=== PATIENT | female | born 1985 | race Two or more races ===

== ENCOUNTER 2016-06-06 08:17 | Inpatient (IN) | payer MEDICAID ==
[~2016-06-06] VITALS: Ht 152.4 cm; Wt 64.0 kg
--- NOTE | ~2016-06-06 | OR ---
PATIENT'S NAME: JUSTINO MOROCHO [facility] AGE: 30 [address] ROOM: [place] [id number] LOCATION: GOBS ADMIT DATE: 06/06/2016 OR/Procedure Report DISCHARGE DATE: FAMILY PHYSICIAN: Christy Sutton MD ATTENDING PHYSICIAN: Christy Sutton SURGEON: Christy Sutton MD BROADCAST PRODUCER: DATE OF PROCEDURE: 06/06/2016 DIAGNOSES: 1. Spontaneous vaginal delivery of a term male. 2. Spontaneous rupture of membranes. 3. Second-degree repair. DESCRIPTION OF PROCEDURE: The patient is a 30-year-old, 2, para 1, at 39 and 2/7th weeks, who presented in spontaneous labor this morning after spontaneous rupture of membranes at home. The patient was 3 cm at the time of arrival, progressed to rim and complete. With expulsion efforts, baby was delivered in an OA presentation. There was a body cord present. Baby was suctioned. Cord was doubly clamped and cut by myself. Baby was handed to nursery personnel. Cord blood was obtained. Placenta delivered spontaneously intact. There was a second-degree tear that was repaired with 3-0 Vicryl in routine fashion. Mother did have somewhat of a gush of bleeding during the repair. Manual massage was done with good firm pressure and resolution of the bleeding. Baby was a male, weighing 7 pounds and 6 ounces, scores 8 at 1 minute and 9 at 5 minutes. Estimated blood loss 400 mL. At this time, both mother and baby are doing well. MD SONYA VEGAS/karishmal /[id number] d: 06/06/162103 t: 06/24/16 1130, OPERATIVE SUMMARY
[~2016-06-06 08:17] MED LIST: PRENATAL 1+1)(P1 TAB PO
[2016-06-06 09:32] LABS: BASOPHIL % 0.4 %; EOSINOPHIL # 0.1 K/uL (0.0-0.5); EOSINOPHIL % 1.1 %; HEMATOCRIT 33.4 % (33.0-46.0); HEMOGLOBIN 11.4 g/dL (11.0-15.0); IMMATURE GRANULOCYTE % 0.4 %; LYMPHOCYTE # 1.2 K/uL (0.8-4.0); LYMPHOCYTE % 17.1 %; MCH 31.1 pg (27.0-34.0); MCHC 34.1 gm/dL (32.0-36.5); MONOCYTE # 0.5 K/uL (0.0-1.0); MONOCYTE % 7.2 %; MPV 11.5 fl (9.4-12.4); NEUTROPHIL # (ANC) 5.3 K/uL (1.8-7.8); NEUTROPHIL % 73.8 %; NRBC % 0 /100WBC (0-0.00); PLATELET COUNT 203 K/uL (150-450); RBC 3.67 M/uL (3.50-5.50); RDW-CV 14.3 % (11.9-14.6); WBC 7.2 K/uL (4.0-11.0)
--- NOTE | 2016-06-07 04:09 | NUR ---
VSS, b/p runs a little low. fundus firm, off to the right at times, lochia small. emptying bladder without difficulty. motrin and percocet at 2345 for cramping and perineal pain.
[2016-06-07 04:33] LABS: BASOPHIL % 0.2 %; EOSINOPHIL # 0.2 K/uL (0.0-0.5); EOSINOPHIL % 1.8 %; IMMATURE GRANULOCYTE # 0.1 K/uL (0.0-0.3); IMMATURE GRANULOCYTE % 0.6 %; LYMPHOCYTE # 2.9 K/uL (0.8-4.0); MCV 91.9 fl (83.0-98.0); MONOCYTE # 0.6 K/uL (0.0-1.0); MONOCYTE % 6.4 %; MPV 11.4 fl (9.4-12.4); NEUTROPHIL # (ANC) 5.6 K/uL (1.8-7.8); NRBC % 0 /100WBC (0-0.00); PLATELET COUNT 180 K/uL (150-450); RBC 2.23 M/uL (3.50-5.50); RDW-CV 14.6 % (11.9-14.6); WBC 9.4 K/uL (4.0-11.0)
[2016-06-07 04:34] LABS: HEMATOCRIT 20.5 % (33.0-46.0); HEMOGLOBIN 6.8 g/dL (11.0-15.0); MCH 30.5 pg (27.0-34.0); MCHC 33.2 gm/dL (32.0-36.5)
--- NOTE | 2016-06-07 15:48 | NUR ---
Consult received to meet with patient. Contacted Madeline [employer] Entry Writer at 0830 and asked for her assistance meeting with patient. Madeline and I went to the OB floor at 0930. We met with patient and her spouse, their 10 year old son was also in the room, but he played on his phone. Introduced myself and explained my role with the CM department. All of this discussion was through Madeline. Informed patient and spouse that they need to contact Medicaid within 30 days and inform them of baby's . I also provided them with a list of community resources in [place] (Malay version). I gave them information and voucher to the [facility] to get baby items. Parents state they have crib, bottles, clothing, diapers, wipes. They are living with friends in [place]. The baby will sleep in the room with them. Through Madeline we stressed the importance and safety of baby sleeping in their own bed (crib or bassinet) and explained that it is not safe for baby to sleep in bed with them. They verbalized their understanding to Madeline and me. I also provided mom with reading material (in Malay) on post depression and reviewed the signs and symptoms. Family denies any other needs at this time. WIll continue to follow and offer supports.
[2016-06-08 05:03] LABS: HEMATOCRIT 17.7 % (33.0-46.0); HEMOGLOBIN 5.8 g/dL (11.0-15.0)
[2016-06-08] MEDS ORDERED: DERMOPLAST SPRA56 GM TOP (09:49)
[2016-06-08] MEDS ORDERED: MOTRIN800 MG PO (09:49)
[2016-06-08] MEDS ORDERED: PERCOCET 5-3251 EACH PO (09:51)
[2016-06-08] MEDS ORDERED: FEOSOL325 MG PO (09:52)
[2016-06-08 14:28] LABS: BASOPHIL % 0.3 %; EOSINOPHIL # 0.3 K/uL (0.0-0.5); EOSINOPHIL % 2.8 %; HEMOGLOBIN 8.7 g/dL (11.0-15.0); IMMATURE GRANULOCYTE # 0.2 K/uL (0.0-0.3); IMMATURE GRANULOCYTE % 1.4 %; LYMPHOCYTE # 3.6 K/uL (0.8-4.0); LYMPHOCYTE % 33.6 %; MCHC 34.4 gm/dL (32.0-36.5); MCV 89.7 fl (83.0-98.0); MONOCYTE # 0.6 K/uL (0.0-1.0); MONOCYTE % 5.7 %; MPV 10.8 fl (9.4-12.4); NEUTROPHIL % 56.2 %; NRBC % 0.2 /100WBC (0-0.00); PLATELET COUNT 197 K/uL (150-450); RDW-CV 14.9 % (11.9-14.6); WBC 10.6 K/uL (4.0-11.0)
[2016-06-08 14:29] LABS: HEMATOCRIT 25.3 % (33.0-46.0); MCH 30.9 pg (27.0-34.0); RBC 2.82 M/uL (3.50-5.50)
--- NOTE | 2016-06-08 15:20 | NUR ---
PATIENT ASKED THRU INTERPRETOR IF SHE FELT BETTER & SHE SAID "YES"
== END 2016-06-08 15:20 | disposition disaster alternative care site (69) | DRG 774 ==
LOC: GOBM 08:17 → GOBS 08:17 → GOBM 08:18 → GOBS 06-08 15:20
PROVIDERS: ADMIT Family Medicine
PROC: 0KQM0ZZ Repair Perineum Muscle, Open Approach (ICD-10-PCS; principal; 2016-06-06)
PROC: 10E0XZZ Delivery of Products of Conception, External Approach (ICD-10-PCS; principal; 2016-06-06)
PROC: 30233N1 Transfusion of Nonautologous Red Blood Cells into Peripheral Vein, Percutaneous Approach (ICD-10-PCS; 2016-06-08)
DX: O70.1 Second degree perineal laceration during delivery (principal); O72.1 Other immediate postpartum hemorrhage; Z37.0 Single live birth; Z3A.39 39 weeks gestation of pregnancy
CPT/HCPCS: J2540; J2590; J3010; J7050; J7120; P9016